=== PATIENT | male | born 1990 | race Caucasian/White ===

== ENCOUNTER 2022-09-11 17:54 | Emergency (ER) | payer OTHER ==
[~2022-09-11] VITALS: Ht 185.4 cm; Wt 80.6 kg
[2022-09-11 17:55] VITALS: BP 128/69
[2022-09-11] MEDS ORDERED: DOXYCYCLINE HYCLATE 100MG TABLET PO ONE (18:35)
== END 2022-09-11 18:44 | disposition home or self-care (01) ==
LOC: M ED 17:54
DX: S70.361A Insect bite (nonvenomous), right thigh, initial encounter (principal); W57.XXXA Bitten or stung by nonvenomous insect and other nonvenomous arthropods, initial encounter; Z88.5 Allergy status to narcotic agent